=== PATIENT | female | born 1980 | race Caucasian/White ===

== ENCOUNTER 2021-10-15 22:06 | Observation (INO) ==
[2021-10-15] MEDS ORDERED: Ketorolac 30 MG/ML VIAL IVP ONE (22:24)
[2021-10-15 22:48] LABS: Basophils # 0.1 K/mcL (0.0-0.2); Basophils % 0.4 %; Eosinophils % 0.2 %; Hemoglobin 15.1 g/dL (11.5-15.4); Immature Granulocytes % 0.7 % (0-4); Lymphocytes # 1.5 K/mcL (0.6-4.6); Lymphocytes % 7.9 %; Mean Corpuscular HGB Conc 34.3 g/dL (31.6-35.5); Mean Corpuscular Volume 90.3 fL (83.0-100.0); Mean Platelet Volume 8.4 fL (9.4-12.4); Monocytes # 1.4 K/mcL (0.0-1.3); Monocytes % 7.3 %; Platelet Count 393 K/mcL (140-400); Red Blood Count 4.87 M/mcL (3.82-4.97); Red Cell Distribution Width 13.1 % (11.5-14.5); Segmented Neutrophils % 83.5 %; White Blood Count 19.1 K/mcL (4.3-11.1)
[2021-10-15] MEDS ORDERED: cefTRIAXone 1,000 MG in 0.9 % Sodium Chloride Mini Bag 100 ML IVPB ONE (22:58)
[2021-10-15] MEDS ORDERED: MetroNIDAZOLE 500 MG/100 ML 500 MG/100 ML BAG IVPB ONE (22:59)
[2021-10-15] MEDS ORDERED: Doxycycline 100 MG in 0.9 % Sodium Chloride Mini Bag 100 ML IVPB ONE (22:59)
[2021-10-15 23:05] LABS: Alanine Aminotransferase 22 Units/L (7-52); Albumin/Globulin Ratio 0.9 (1.1-2.2); Alkaline Phosphatase 84 Units/L (34-104); Aspartate Amino Transferase 20 Units/L (13-39); BUN/Creatinine Ratio 7 (6-26); Bilirubin,Direct 0.1 mg/dL (0.0-0.2); Bilirubin,Indirect 0.5 mg/dL (0.0-1.0); Bilirubin,Total 0.6 mg/dL (0.3-1.0); Blood Urea Nitrogen 7 mg/dL (6-20); Calcium 9.8 mg/dL (8.6-10.3); Carbon Dioxide 29 mEq/L (23-29); Chloride 92 mEq/L (98-107); Globulin 4.7 g/dL (2.4-3.5); Glucose 101 mg/dL (70-105); Osmolality,Calculated 270 (280-300); Potassium 4.3 mEq/L (3.5-5.1); Sodium 131 mEq/L (136-145); Total Protein 8.7 g/dL (6.4-8.9); eGFR For African Americans > 60 (> 60); eGFR For Non-African Americans > 60 (> 60)
[2021-10-15 23:56] LABS: Candida DNA Not Detected (Not Detect); Gardnerella DNA DETECTED (Not Detect); Trichomonas DNA DETECTED (Not Detect)
[2021-10-16 00:59] LABS: Bacteria,Urine Few per hpf (None-Few); Bilirubin,Urine Negative (Negative); Blood,Urine Moderate (Negative); Clarity,Urine Turbid (Clear); Color,Urine Yellow (Yellow); Glucose,Urine (UA) Normal (Normal); Hyaline Casts,Urine Few per lpf (None Seen); Ketones,Urine 10 mg/dL (Negative); Leukocyte Esterase,Urine Large (Negative); Mucus,Urine Few per lpf (None-Few); Nitrite,Urine Negative (Negative); Protein,Urine 100 mg/dL (Neg-Trace); RBC,Urine 15-30 per hpf (0-3); Specific Gravity,Urine > 1.030 (1.010-1.025); Squamous Epithelial Cell,Urine Many per hpf (None-Few); WBC,Urine 30-50 per hpf (0-3)
[2021-10-16] MEDS ORDERED: Ondansetron 4 MG/2 ML VIAL IVP PRN (03:00)
[2021-10-16] MEDS ORDERED: Acetaminophen 325 MG TABLET PO PRN (03:00)
[2021-10-16] MEDS ORDERED: 0.9 % Sodium Chloride 1,000 ML IVC SCH (03:15)
[2021-10-16] MEDS ORDERED: MetroNIDAZOLE 500 MG/100 ML 500 MG/100 ML BAG IVPB ONE (05:02)
[2021-10-16] MEDS ORDERED: Gabapentin 300 MG CAPSULE PO PRN (05:33)
[2021-10-16] MEDS ORDERED: Doxycycline 100 MG in 0.9 % Sodium Chloride Mini Bag 100 ML IVPB SCH (06:00)
[2021-10-16 06:25] VITALS: BP 121/76; PULSE 83; TEMP 97.9; O2SAT 96
[2021-10-16] MEDS ORDERED: Doxycycline 100 MG CAPSULE PO SCH (09:00)
[2021-10-16] MEDS ORDERED: amLODIPine 5 MG TABLET PO SCH (09:00)
[2021-10-16] MEDS ORDERED: metroNIDAZOLE 500 MG TABLET PO SCH (09:00)
[2021-10-16] MEDS ORDERED: cefTRIAXone 1,000 MG in 0.9 % Sodium Chloride Mini Bag 100 ML IVPB SCH (09:00)
[2021-10-16] MEDS ORDERED: CefTRIAXone 1,000 MG VIAL IM ONE (15:30)
== END 2021-10-16 16:45 | disposition left against medical advice (07) ==
LOC: EMEROOARM 22:06 → 3BNU 22:06 → 1NENUOBS 10-16 02:32 → 1NENUPED 10-16 11:19
PROVIDERS: ADMIT Obstetrics & Gynecology; ATTEND Obstetrics & Gynecology